=== PATIENT | female | born 2005 | race Caucasian/White ===

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

== ENCOUNTER 2023-11-07 09:56 | Outpatient (REF) | payer BC, SELFPAY ==
[2023-11-08 13:25] LABS: Chlamydia Result Negative (Negative); GC Result Negative (Negative)
[2023-11-08 13:26] LABS: Chlamydia Result Negative (Negative); GC Result Negative (Negative)
== END 2023-11-07 09:57 | disposition home or self-care (01) ==
LOC: LBN 09:56
PROVIDERS: PCP Nurse Practitioner Pediatrics; Visit Provider Nurse Practitioner Pediatrics
DX: Z11.3 Encounter for screening for infections with a predominantly sexual mode of transmission (principal); N89.8 Other specified noninflammatory disorders of vagina
CPT/HCPCS: 87491; 87591; 87480; 87510; 87660

== ENCOUNTER 2023-11-08 01:32 | Outpatient (CLI) | payer BC, SELFPAY ==
[2023-11-08 19:21] LABS: HIV-1/2 Ag & Ab Screen Negative (Negative)
[2023-11-09 11:27] LABS: Syphilis Serology (RPR) Negative (Negative)
== END 2023-11-08 01:33 | disposition home or self-care (01) ==
LOC: LBO 01:32
PROVIDERS: PCP Nurse Practitioner Pediatrics; Visit Provider Nurse Practitioner Pediatrics
DX: Z11.3 Encounter for screening for infections with a predominantly sexual mode of transmission (principal)
CPT/HCPCS: 36415; 87389; 86592

== ENCOUNTER 2025-03-10 13:17 | Outpatient (CLI) | payer BC, SELFPAY ==
[2025-03-10 12:10] LABS: Abs Immature Grans 0.01 10^3/uL (0.0-0.06); HCT 41.1 % (36.0-46.0); HGB 13.7 g/dL (11.2-15.7); Immature Grans % 0.1 %; MCH 30.2 pg (27.0-33.0); MCHC 33.3 % (32.0-36.0); MCV 91 fL (80-95); MPV 10.9 fL (8.0-11.0); Platelet Count 227 10^3/uL (130-400); RBC 4.53 10^6/uL (3.93-5.22); RDW 12.0 % (11.7-14.6); RDW-SD 39.9 fL; WBC 6.85 10^3/uL (4.4-10.8)
[2025-03-10 12:14] LABS: ESR 3 mm/hr (0-20)
[2025-03-10 12:34] LABS: C-Reactive Protein < 0.50 mg/dL (<=0.50)
[2025-03-10 12:36] LABS: ALT 21 U/L (10-49); AST 23 U/L (<34); Albumin 4.5 g/dL (3.4-5.0); Alkaline Phosphatase 61 U/L (46-116); Anion Gap 8.7 mmol/L (3-11); BUN 11 mg/dL (9-23); Bilirubin, Total 0.60 mg/dL (0.2-1.2); CO2 27.3 mmol/L (20.0-31.0); Calcium 9.5 mg/dL (8.3-10.6); Chloride 105 mmol/L (98-107); Glucose 88 mg/dL (74-106); Potassium 4.0 mmol/L (3.5-5.1); Sodium 141 mmol/L (136-145); Total Protein 7.4 g/dL (5.7-8.2)
== END 2025-03-10 13:18 | disposition home or self-care (01) ==
LOC: LBO 13:18
PROVIDERS: PCP Nurse Practitioner Pediatrics; Visit Provider Pediatrics
DX: R10.9 Unspecified abdominal pain (principal); K62.5 Hemorrhage of anus and rectum
CPT/HCPCS: 36415; 80053; 82784; 83516; 85652; 85025; 86140

== ENCOUNTER 2025-04-14 12:03 | Outpatient (REF) | payer BC, SELFPAY | END 2025-04-14 12:04 | disposition home or self-care (01) | LOC: LBN 12:03 | PROVIDERS: PCP Nurse Practitioner Pediatrics; Visit Provider Pediatrics | DX: J35.1 Hypertrophy of tonsils (principal); N76.0 Acute vaginitis | CPT/HCPCS: 87081; 87480; 87510; 87660 ==